=== PATIENT | female | born 1955 | race Caucasian/White ===

== ENCOUNTER → 2019-05-20 | Outpatient (CLI) | payer OTHER ==
[~2019-05-20] MED LIST: MOBIC7.5 M1 PO; PROVERA10 MG PO; TRIAMTERENE-HC1 EAC1 PO
== END ==
LOC: CAT 13:42
DX: Z13.6 Encounter for screening for cardiovascular disorders (principal); E78.00 Pure hypercholesterolemia, unspecified; I25.10 Atherosclerotic heart disease of native coronary artery without angina pectoris